=== PATIENT | male | born 1975 | race Two or more races ===

== ENCOUNTER 2024-12-16 21:10 | Inpatient (IN) | payer MEDICAID, OTHER ==
[~2024-12-16] VITALS: Ht 175.3 cm; Wt 92.3 kg
[2024-12-16] MEDS: SODIUM CHLORIDE 0.9% 1,000 ML IV ONE ×2 (21:45→23:36)
[2024-12-16] MEDS: ONDANSETRON HCL 4 MG/2 ML VIAL IV ONE (21:45)
--- NOTE | 2024-12-16 21:48 | ED.PDOC ---
History of Present Illness HPI Comments 49-year-old male presents for multiple chief complaints, including chest pain, shortness of breath, lightheadedness, dizziness, back spasms, nausea, and vomiting. Patient endorses on 2 week history of symptoms, which have progressively worse over the past 3 days. Initial onset was reported to have been gradual, unprovoked, and atraumatic in nature. Only significant history of diabetes and PUD. Patient reports being noncompliant with his medications in addition to not checking his blood sugar levels, regularly. REVIEW OF SYSTEMS: General: No fever, no chills, or fatigue HEENT: No sore throat, no earache, no congestion, no neck pain. Cardiac: chest pain. Lightheadedness. No palpitations. Lungs: shortness of breath, no cough. GI: Nausea and vomiting, no diarrhea, no constipation, no abdominal pain : No dysuria, frequency, or urgency. No hematuria. Musculoskeletal: Back spasms. No joint pain , no joint swelling, no extremity edema. Skin: No rash, no itching. Neuro: Dizziness. No headache no weakness PHYSICAL EXAM: General: Awake, alert and oriented. No acute distress. Skin: Skin in warm, dry and intact. Appropriate color for ethnicity. HEENT: The head is normocephalic and atraumatic. Conjunctivae are clear without exudates or hemorrhage. Sclera is non-icteric. EOM are intact. No signs of nystagmus. Eyelids are normal in appearance without swelling or lesions. Oral mucosa is pink and moist Neck: The neck is supple with normal range of motion. No JVD. Cardiac: Heart rate and rhythm are normal. No murmurs, gallops, or rubs are auscultated. Respiratory: No signs of respiratory distress. Lung sounds are clear in all lobes bilaterally without rales, rhonchi, or wheezes. Extremities: Upper and lower extremities are atraumatic in appearance without deformity or edema. Neurological: The patient is awake, alert and oriented to person, place, and time with normal speech. Speech is clear. There is no facial asymmetry. Psychiatric: Appropriate mood and affect. Good judgement and insight. Chief Complaint: Chest Pain Time Seen by MD: 21:36 Reviewed Notes: Nurses Notes, Medications, Allergies Allergies: Coded Allergies: NO KNOWN ALLERGIES (Unverified , 12/16/24) Information Source: Patient Mode of Arrival: Wheelchair Severity: Moderate Timing: Weeks Duration: Since onset Prehospital treatment: None Past Medical History PAST MEDICAL HISTORY: DM, PUD Surgical History: Denies all surgeries Family History Family History: Unknown Social History Smoker: Non-Smoker Alcohol: Denies ETOH Use Drugs: Denies Drug Use Lives In: Home Was a procedure done? Was a procedure done?: No Differential Dx Considerations may include: Differential diagnoses considered include acute ischemic coronary syndrome, aortic dissection, cardiac tamponade, mediastinitis, pulmonary embolus, pneumothorax, tension pneumothorax, esophageal rupture, coronary artery vasospasm, myocarditis, pericarditis, pneumonia, pulmonary edema, esophageal tear, pancreatitis, aortic stenosis, dilated cardiomyopathy, hypertrophic cardiomyopathy, mitral valve prolapse, malignancy, pleuritis, pneumomediastinum, primary pulmonary hypertension, cholecystitis, esophageal spasm, esophagus, ga stritis, GERD, peptic ulcer disease, costochondritis, fibromyalgia, rib fracture, herpes zoster, radicular syndromes, thoracic outlet syndrome, somatization. intracranial hemorrhage, stroke, head injury, seizure, metabolic disturbance, electrolyte imbalance, infection, substance intoxication, psychiatric cause, other systemic illness, other X-Ray, Labs, Meds, VS Vital Signs Date Time Temp Pulse Resp B/P (MAP) Pulse Ox O2 Delivery O2 Flow Rate FiO2 12/17/24 00:02 61 15 98 Room Air* 0 21 12/17/24 00:00 77 14 133/82 (99) 100 12/16/24 23:38 97.9 85 13 152/66 (94) 100 97.9 12/16/24 21:29 97.9 88 18 143/94 100 97.9 12/16/24 21:22 84 Lab Test 12/17/24 00:56 12/17/24 00:23 12/16/24 22:27 12/16/24 21:45 Range/Units Stool Occult Blood Negative Negative Stool Occult Blood Sample #3 Negative Troponin I High Sensitivity 54 54 </=54 ng/L Lipase 28 12-53 U/L Blood Gas Specimen Type Arterial Blood Gas Sample Site Left radial Blood Gas Patient Temperature 37.0 Arterial Blood Date Drawn [id number] Arterial Blood pH 7.507 H 7.350-7.450 Arterial Blood Partial Pressure CO2 28.2 L 35.0-48.0 mmHg Arterial Blood Partial Pressure O2 94.7 83.0-108.0 mmHg Arterial Blood HCO3 21.8 21.0-28.0 mmol/L Arterial Blood Oxygen Saturation 97.2 94.0-98.0 % Arterial Blood Base Excess -1.3 -2.0-3.0 mmol/L Arterial Blood Oxyhemoglobin 94.4 94.0-98.0 % Arterial Blood Carboxyhemoglobin 1.7 H 0.5-1.5 % Arterial Blood Methemoglobin 1.2 0.0-1.5 % Albert Test Yes Blood Gas Total Hemoglobin 5.00 *L 13.5-17.5 g/dL Blood Gas Modality Room air FiO2 % 21.0 Blood Gas Critical Value Read Back Yes Blood Gas Notified Whom mike Joyner Blood Gas Notified Time [id number] Blood Gas Notified By Content Strategy Lead nevaeh pedro Test 12/16/24 21:32 Range/Units White Blood Count 9.6 4.4-10.8 10^3/uL Red Blood Count 2.53 L 4.5-5.90 10^6/uL Hemoglobin 4.4 *L 13.5-17.5 g/dL Hematocrit 15.1 L 41.0-53.0 % Mean Corpuscular Volume 59.8 L 80.0-100.0 fL Mean Corpuscular Hemoglobin 17.4 L 28.0-32.0 pg Mean Corpuscular Hemoglobin Concent 29.1 L 32.0-36.0 g/dL Red Cell Distribution Width 21.4 H 11.8-14.3 % Platelet Count 370 140-450 10^3/uL Mean Platelet Volume 7.0 6.9-10.8 fL Neutrophils (%) (Auto) 69.5 37.0-80.0 % Lymphocytes (%) (Auto) 21.2 10.0-50.0 % Monocytes (%) (Auto) 8.6 0.0-12.0 % Eosinophils (%) (Auto) 0.3 0.0-7.0 % Basophils (%) (Auto) 0.4 0.0-2.0 % Neutrophils # (Auto) 6.6 1.6-8.6 10 ^3/uL Lymphocytes # (Auto) 2.0 0.4-5.4 10 ^3/uL Monocytes # (Auto) 0.8 0-1.3 10 ^3/uL Eosinophils # (Auto) 0 0-0.8 10 ^3/uL Basophils # (Auto) 0 0-0.2 10 ^3/uL Nucleated Red Blood Cells 0.3 % Prothrombin Time 12.8 H 9.3-11.8 sec Prothrombin Time INR 1.23 H 0.9-1.15 Activated Partial Thromboplast Time 25.1 24.5-34.5 SEC Sodium Level 131 L 136-145 mmol/L Potassium Level 3.2 L 3.5-5.1 mmol/L Chloride Level 95 L 98-107 mmol/L Carbon Dioxide Level 24 20-31 mmol/L Anion Gap 12 5-15 Blood Urea Nitrogen 16 9-23 mg/dL Creatinine 0.78 0.700-1.30 mg/dL Glomerular Filtration Rate Calc 110 >90 mL/min BUN/Creatinine Ratio 20.5 H 10.0-20.0 Serum Glucose 91 74-106 mg/dL Calcium Level 9.7 8.7-10.4 mg/dL Magnesium Level 1.6 1.6-2.6 mg/dL Iron Level 11 L 65-175 ug/dL Total Iron Binding Capacity 472 H 250-425 ug/dL Percent Iron Saturation 2.3 L 20-55 % Ferritin 4.8 L 22-322 ng/mL Total Bilirubin 0.5 0.2-1.0 mg/dL Aspartate Amino Transferase (AST) 39 13-40 U/L Alanine Aminotransferase (ALT) 26 7-40 U/L Alkaline Phosphatase 65 46-116 U/L Troponin I High Sensitivity 53 </=54 ng/L Total Protein 8.0 5.7-8.2 g/dL Albumin 4.5 3.2-4.8 g/dL Beta-Hydroxybutyric Acid 1.218 H < 0.4 mmol/L Current Medications Medications (Trade) Dose Ordered Sig/Annette Route Start Time Stop Time Status Last Admin Sodium Chloride 1,000 ml @ 1,000 mls/hr Q1H ONCE IV 12/16/24 21:45 12/16/24 22:44 DC 12/16/24 21:45 Ondansetron HCl (Zofran) 4 mg ONCE ONCE IV 12/16/24 21:45 12/16/24 21:46 DC 12/16/24 21:45 Aspirin 324 mg ONCE ONCE PO 12/16/24 22:00 12/16/24 22:01 DC 12/16/24 22:00 Potassium Chloride (Klor-Con Tablet) 40 meq ONCE ONCE PO 12/16/24 23:15 12/16/24 23:18 DC 12/16/24 23:36 Pantoprazole Sodium (Protonix) 40 mg ONCE ONCE IV 12/16/24 23:15 12/16/24 23:18 DC 12/16/24 23:36 Sodium Chloride 1,000 ml @ 75 mls/hr [id number] ONCE IV 12/16/24 23:15 12/17/24 12:34 12/16/24 23:36 Octreotide Acetate 100 mcg/ Sodium Chloride 51 ml @ 204 mls/hr ONCE ONCE IV 12/17/24 01:00 12/17/24 01:24 DC 12/17/24 02:56 Octreotide Acetate 500 mcg/ Sodium Chloride 100 ml @ 10 mls/hr Q10H IV 12/17/24 01:00 12/17/24 01:00 Pantoprazole Sodium (Protonix) 40 mg BID IV 12/17/24 01:00 12/17/24 01:47 Acetaminophen/ Hydrocodone Bitart ([place] 5/325MG Tab) 1 tab ONCE ONCE PO 12/17/24 01:00 12/17/24 01:24 DC 12/17/24 01:43 [place] [address] Ph: [phone] DIAGNOSTIC IMAGING Diagnostic Imaging Report : [id number] Signed PATIENT: TING CAMPBELL ACCT: [id number] UNIT: [id number] : 1975 LOC: OVERFLOW ROOM / BED: [address] [place] [address] AGE / SEX: 49 / M ADM STATUS: ADM IN SERVICE 0100 ORDERING PHYSICIAN: VICKIE COOPER RESIDENT PROCEDURE(s): LIVUS - LIVER REASON: r/o cirrhosis ORDER NUMBER(s): [id number], ACCESSION NUMBER(s): [id number] STUDY: US LIVER TECHNIQUE: RUQ ultrasound was obtained using standard technique with Doppler. INDICATIONS: r/o cirrhosis FINDINGS: PANCREAS: Normal in size and echogenicity. Tail of pancreas is not well seen. LIVER: Normal size and echotexture. No mass. GALLBLADDER: No gallstones. Negative levine sign. no gallbladder wall thickening or pericholecystic fluid. COMMON BILE DUCT: Normal in caliber. RIGHT KIDNEY: Normal in size and echogenicity. No mass. No urinary stones. No hydronephrosis. IMPRESSION: 1. Difficult exam due to body habitus. 2. No acute cholecystitis. ATED BY: MARILYN JENSEN MD DICTATED DATE/TIME: 12/17/24206 SIGNED BY: MARILYN JENSEN MD SIGNED DATE/TIME: 12/17/24206 CC: [place] [address] Ph: [phone] DIAGNOSTIC IMAGING Diagnostic Imaging Report : [id number] Signed PATIENT: TING CAMPBELL ACCT: [id number] UNIT: [id number] : 1975 LOC: ER ROOM / BED: / AGE / SEX: 49 / M ADM STATUS: REG ER SERVICE 52 ORDERING PHYSICIAN: CHAO DERAS MD PROCEDURE(s): CXR1 - CHEST XRAY 1 VIEW REASON: Chest pain ORDER NUMBER(s): [id number], ACCESSION NUMBER(s): [id number] CHEST RADIOGRAPH Indication: Chest pain Technique: Single frontal view of the chest was obtained Comparison: None FINDINGS: Lines and Tubes: None Lungs: No focal consolidation. Pleura: No effusion. No pneumothorax. Cardiomediastinal contours: Unremarkable Bones: No acute osseous abnormality. IMPRESSION: 1. No acute cardiopulmonary disease. ATED BY: WARREN YO Jr., DO DICTATED DATE/TIME: 12/16/242243 SIGNED BY: WARREN YO Jr., DO SIGNED DATE/TIME: 12/16/242243 CC: Time of 1ST Reevaluation: 00:06 Reevaluation 1ST: Unchanged Patient Education/Counseling: Other (Need for admission) Family Education/Counseling: No Family Present SEPSIS Sepsis Screen Date sepsis recognized/suspect: Dec 16, 2024 Time Sepsis recognized/suspect: 2119 Recent Procedure: No On Antibiotic Therapy: No Respiratory Rate >20: No Heart Rate >90: No Temp<36 C (96.8 F) or >38.3 C: No SBP <90 or MAP <65 mmHG: No New Acute Mental Status Change: No Is the patient on CPAP, BIPAP,: No Physician Orders Abg W/ Co-Ox (12/16/24 21:36) Saline Lock (12/16/24 21:36) Urinalysis (12/16/24 21:36) Electrocardigram (12/16/24 22:41) Electrocardigram (12/17/24 00:41) Chest Xray 1 View (12/16/24 21:53) Pulse Ox Cont Per Day (12/16/24 22:48) Vital Signs .PER UNIT PROTOCOL (12/16/24 22:48) Administer Blood Products UD (12/16/24 22:48) Stool Occult Blood (12/16/24 23:13) Sodium Chloride 0.9% (12/16/24 23:15) Sodium Chl 0.9% (So... W/Octreotide Acet (12/17/24 01:00) Comprehensive Metabolic Panel (12/17/24 04:00) Complete Blood Count (12/17/24 04:00) LIVER (12/17/24 01:00) Pantoprazole (Protonix) (12/17/24 01:00) Vital Signs Date Time Temp Pulse Resp B/P (MAP) Pulse Ox O2 Delivery O2 Flow Rate FiO2 12/17/24 00:02 61 15 98 Room Air* 0 21 12/17/24 00:00 77 14 133/82 (99) 100 12/16/24 23:38 97.9 85 13 152/66 (94) 100 97.9 12/16/24 21:29 97.9 88 18 143/94 100 97.9 12/16/24 21:22 84 Laboratory Tests Test 12/16/24 21:32 White Blood Count 9.6 10^3/uL (4.4-10.8) Medications Medications Dose Ordered Sig/Annette Route Start Time Stop Time Status Last Admin Dose Admin Acetaminophen/ Hydrocodone Bitart 1 tab ONCE ONCE PO 12/17/24 01:00 12/17/24 01:24 DC 12/17/24 01:43 Aspirin 324 mg ONCE ONCE PO 12/16/24 22:00 12/16/24 22:01 DC 12/16/24 22:00 Octreotide Acetate 100 mcg/ Sodium Chloride 51 ml @ 204 mls/hr ONCE ONCE IV 12/17/24 01:00 12/17/24 01:24 DC 12/17/24 02:56 Octreotide Acetate 500 mcg/ Sodium Chloride 100 ml @ 10 mls/hr Q10H IV 12/17/24 01:00 12/17/24 01:00 Ondansetron HCl 4 mg ONCE ONCE IV 12/16/24 21:45 12/16/24 21:46 DC 12/16/24 21:45 Pantoprazole Sodium 40 mg BID IV 12/17/24 01:00 12/17/24 01:47 Pantoprazole Sodium 40 mg ONCE ONCE IV 12/16/24 23:15 12/16/24 23:18 DC 12/16/24 23:36 Potassium Chloride 40 meq ONCE ONCE PO 12/16/24 23:15 12/16/24 23:18 DC 12/16/24 23:36 Sodium Chloride 1,000 ml @ 75 mls/hr [id number] ONCE IV 12/16/24 23:15 12/17/24 12:34 12/16/24 23:36 Sodium Chloride 1,000 ml @ 1,000 mls/hr Q1H ONCE IV 12/16/24 21:45 12/16/24 22:44 DC 12/16/24 21:45 Departure 1 Departure Time of Disposition: 23:34 Impression: Primary Impression: Severe anemia Additional Impressions: Hyponatremia Hypokalemia Disposition: ADMITTED INPATIENT Condition: Serious Comments MDM: [age] year old male with a history of diabetes, peptic ulcer disease presents to the emergency department with chest pain. Initial evaluation included thorough history, physical examination and appropriate diagnostic testing. Based on the clinical presentation and diagnostic findings, the patient appears to have severe anemia, hyponatremia, hypokalemia. Blood transfusion initiated in the ED, as well as potassium replacement and IV fluids. Given the complexity of the case and need for further management patient is being admitted to the hospitalist service for further monitoring, treatment and evaluation. Risks, benefits and alternatives of admission and proposed interventions were discussed with the patient. Patient is in agreement with the plan. Extensive evaluation was performed in attempt to identify or rule out: (See differential diagnosis section) The following tests were ordered, and results were reviewed by me and discussed with patient: (See diagnostic results section) The following test were independently interpreted by me: EKG I reviewed and agreed with the following test results read by other providers: Chest x-ray I reviewed the following notes from the pt's past medical encounters: N/A Additional information was gathered from interviewing the following independent historians: N/A Discussion of management or test interpretation with external physician/other qualified health memory care program resident: N/A Addressed an acute or chronic illness that poses a threat to life or bodily function: Severe anemia requiring blood transfusion Decision regarding hospitalization or escalation of hospital level of care: Risk and benefits of admission for further treatment of patient's condition was considered. Due to patient's current clinical condition, high risk of decline and poor outcome if discharged and need for further inpatient management and monitoring, patient will be admitted to the hospital. Drug therapy requiring intensive monitoring for toxicity: Packed red blood cell transfusion Parenteral controlled substances: N/A Decision regarding elective major surgery with identified patient or procedure risk factors: N/A Decision regarding emergency major surgery: N/A Decision not to resuscitate or to de-escalate care because of poor prognosis: N/A Diagnosis or treatment significantly limited by social determinants of health: N/A Critical Care Note Critical Care Time?: No Stability Stability form required: No Heart Score Heart Score: Heart Score Response (Comments) Value History N/A 0 EKG N/A 0 Age N/A 0 Risk Factors N/A 0 Troponin N/A 0 Total 0 I personally scribed for CHAO DERAS MD ([email or web address]) on 12/16/24 at 21:48. Electronically submitted by Beto Gutiérrez ([email or web address]). I personally scribed for CHAO DERAS MD ([email or web address]) on 12/17/24 at 03:02. Electronically submitted by Beto Gutiérrez ([email or web address]). CHAO DERAS MD Dec 16, 2024 21:48
[2024-12-16 21:53] LABS: Base Excess -1.3 mmol/L (-2.0-3.0)
[2024-12-16 22:16] LABS: Alanine Aminotransferase 26 U/L (7-40); Albumin 4.5 g/dL (3.2-4.8); Alkaline Phosphatase 65 U/L (46-116); Anion Gap 12 (5-15); BUN/Creatinine Ratio 20.5 (10.0-20.0); Bilirubin, Total 0.5 mg/dL (0.2-1.0); Blood Urea Nitrogen 16 mg/dL (9-23); Calcium 9.7 mg/dL (8.7-10.4); Carbon Dioxide 24 mmol/L (20-31); Glucose 91 mg/dL (74-106); Nucleated Red Blood Cells % 0.3 %; Total Protein 8.0 g/dL (5.7-8.2)
[2024-12-16 22:18] LABS: Hematocrit 15.1 % (41.0-53.0); Mean Corpuscular Hemoglobin 17.4 pg (28.0-32.0); Mean Corpuscular Volume 59.8 fL (80.0-100.0)
[2024-12-16 22:19] LABS: Chloride 95 mmol/L (98-107); Magnesium 1.6 mg/dL (1.6-2.6); Potassium 3.2 mmol/L (3.5-5.1); Sodium 131 mmol/L (136-145)
[2024-12-16 22:27] LABS: Hemoglobin 4.4 g/dL (13.5-17.5)
--- NOTE | 2024-12-16 22:47 | DVH ---
CHEST RADIOGRAPH Indication: Chest pain Technique: Single frontal view of the chest was obtained Comparison: None FINDINGS: Lines and Tubes: None Lungs: No focal consolidation. Pleura: No effusion. No pneumothorax. Cardiomediastinal contours: Unremarkable Bones: No acute osseous abnormality. IMPRESSION: 1. No acute cardiopulmonary disease.
[2024-12-16] MEDS: PANTOPRAZOLE 40 MG/10 ML VIAL INJ IV ONE (23:36)
[2024-12-16] MEDS: POTASSIUM CHL 20 Meq TABLET PO ONE (23:36)
[2024-12-17] VITALS (16 sets, daily range): BP systolic 104–164; BP diastolic 59–100; PULSE 56–87; RESP 11–18; TEMP 97.2–98.9; O2SAT 98–100
--- NOTE | 2024-12-17 00:17 | ECG ---
[facility] Test Date: 2024-12-16 Test Time: 21:22:02 Pat Name: TING CAMPBELL Department: ED Room: [address] [place] [address] Gender: M [employer]: COMPA : 1975 Requested By: EMERGENCY EMERGENCY Order Number: [id number] Reading MD: Gokul Nuno Measurements Intervals [place] Rate: 84 P: 19 IA: 144 QRS: -1 QRSD: 89 T: 7 QT: 399 QTc: 472 Interpretive Statements Sinus rhythm Electronically Signed On 12-17-2024 18:24:53 PDT by Gokul Nuno Please click the below link to view image of tracing.
[2024-12-17] MEDS: OCTREOTIDE ACETATE 500 MCG in SODIUM CHL 0.9% 99 ML IV SCH (01:00)
[2024-12-17] MEDS ORDERED: ONDANSETRON HCL 4 MG/2 ML VIAL IV PRN (01:30)
[2024-12-17 01:37] LABS: Iron 11.0 ug/dL (65-175)
[2024-12-17 01:39] LABS: Total Iron Binding Capacity 472.0 ug/dL (250-425)
[2024-12-17] MEDS: HYDROcodone-ACET 5/325MG TAB PO ONE (01:43)
[2024-12-17] MEDS: PANTOPRAZOLE 40 MG/10 ML VIAL INJ IV SCH (01:47)
[2024-12-17] MEDS: OCTREOTIDE ACETATE 500 MCG/ML VL ONE (01:51)
[2024-12-17 02:03] LABS: INR 1.23 (0.9-1.15); Partial Thromboplastin Time 25.1 SEC (24.5-34.5); Prothrombin Time 12.8 sec (9.3-11.8)
--- NOTE | 2024-12-17 02:10 | DVH ---
STUDY: US LIVER TECHNIQUE: RUQ ultrasound was obtained using standard technique with Doppler. INDICATIONS: r/o cirrhosis FINDINGS: PANCREAS: Normal in size and echogenicity. Tail of pancreas is not well seen. LIVER: Normal size and echotexture. No mass. GALLBLADDER: No gallstones. Negative levine sign. no gallbladder wall thickening or pericholecystic f luid. COMMON BILE DUCT: Normal in caliber. RIGHT KIDNEY: Normal in size and echogenicity. No mass. No urinary stones. No hydronephrosis. IMPRESSION: 1. Difficult exam due to body habitus. 2. No acute cholecystitis.
[2024-12-17] MEDS: OCTREOTIDE ACETATE 100 MCG in SODIUM CHL 0.9% 50 ML IV ONE (02:56)
[2024-12-17] MEDS: OCTREOTIDE ACETATE 100 MCG/ML VL ONE (02:57)
--- NOTE | 2024-12-17 06:07 | DVHHPRES ---
History of Present Illness Resident Creating Document: VICKIE COOPER RESIDENT History of Present Illness Lalo Dubon is a 49-year-old male, with past medical history of DM2, GERD and peptic ulcer disease. The patient presented to the ED with chief complain of 3 days of chest pain /, stabbing-like, retrosternal, intermittent, progressive, irradiated to the back associated with lightheadedness, dizziness, shortness of breath, nausea, and vomiting. The patient reports po intolerance, vomit with every meal for the last 2 months and chronic alcohol drinking 6-8 cans of beer daily. Today, the patient start experiencing epigastric abdominal pain / that irradiated to the chest, burning like pain and nausea, this prompted his visit to the ED. The patient denies hematochezia, hematemesis, hemorrhoids, changes in bowel movements habits, hematuria, fever, chills or other symptoms. Initial evaluation in the ED showed: Hb: 4.4mg/dl, ABGs; PCO2 28.2 pH:7.50 Blood Gas Total Hemoglobin: 5, HCO3 21.8, Potassium 3.2 meq/l, Troponins; 53, 54. Type and screen were ordered, 2 RBC units will be transfused. GI consult was requested. Patient will be admitted for further evaluation and management. GI: GERD, GI bleed (GI bleeding that needed RBC Unit transfusion 3-4 years ago. ), Peptic Ulcer disease Heme/Onc: Iron deficiency Anemia Hepatobiliary: Cirrhosis Endocrine: Diabetes (D\M2, Patient stopped treatment by himself. ) Past Surgical History: Hernia Repair (Right 10 years ago.), Other (L ankle fracture.) Family History: DM, Hypertension Smoke: No ALCOHOL: heavy (6-8 cans per day for more than 10 years. ) Drugs: None Lives: with Family Review of Systems Constitutional: Yes: Weakness, Malaise; No: Fever, Chills, Sweats, Other Eyes: No: Pain, Vision change, Conjunctivae inflammation, Eyelid inflammation, Other, Redness ENT: No: Ear pain, Ear discharge, Nose pain, Nose discharge, Nose congestion, Mouth pain, Mouth swelling, Throat pain, Throat swelling, Other Respiratory: SOB with excertion; No: Cough, Dry, Shortness of breath, Wheezing, Hemoptysis, Pleuritic Pain, Sputum, Wheezing, Other Cardiovascular: Chest Pain, Lt Headedness; No: Palpitations, Orthopnea, Paroxy smal Noc. Dyspnea, Edema, Other Gastrointestinal: Nausea, Vomiting, Abdominal Pain; No: Diarrhea, Constipation, Melena, Hematochezia, Other Genitourinary: No Dysuria, No Frequency, No Incontinence, No Hematuria, No Retention, No Other Musculoskeletal: No: other, neck pain, shoulder pain, arm pain, back pain, hand pain, leg pain, foot pain Skin: No: Rash, Lesions, Jaundice, Bruising, Other Neurological: Weakness; No: Numbness, Incoordination, Change in speech, Confusion, Seizures, Other Allergies: Coded Allergies: NO KNOWN ALLERGIES (Unverified , 12/16/24) Medications Current Medications Medications Dose Ordered Sig/Annette Route Start Time Stop Time Status Last Admin Dose Admin Octreotide Acetate 500 mcg/ Sodium Chloride 100 ml @ 10 mls/hr Q10H IV 12/17/24 01:00 12/17/24 01:00 10 MLS/HR Pantoprazole Sodium 40 mg BID IV 12/17/24 01:00 12/17/24 01:47 40 MG Ondansetron HCl 4 mg Q4HP PRN IV 12/17/24 01:30 Exam Vital Signs Vital Signs Date Time Temp Pulse Resp B/P (MAP) Pulse Ox O2 Delivery O2 Flow Rate FiO2 12/17/24 05:00 98.5 79 16 104/64 98.5 12/17/24 04:00 98 12/17/24 00:02 Room Air* 0 21 General Appearance: Alert, Oriented X3, Cooperative, mild distress HEENT: Atraumatic, Mucous membr. moist/pink, Other (Jaundice in face. ) Respiratory: Clear to auscultation, Normal air movement Cardiovascular: Regular rate, Normal S1, Normal S2, No murmurs Abdominal: Normal bowel sounds, Soft, No masses, Other (Soft, depressible, Tendernes in uper right quadrant and epigastric area, cannot palpate the liver edge. ) Extremities: No clubbing, No cyanosis, No edema, Normal pulses, No tenderness/swelling Skin: No rashes, No breakdown, No significant lesion Neuro: Normal gait, Normal speech, Strength at 5/5 X4 ext, Normal tone, Sensation intact Psych/Mental Status: Mental status NL, Mood NL Labs/Xrays Labs Test 12/17/24 00:56 12/17/24 00:23 12/16/24 21:45 12/16/24 21:32 Range/Units Stool Occult Blood Negative Negative Stool Occult Blood Sample #3 Negative Troponin I High Sensitivity 54 </=54 ng/L Lipase 28 12-53 U/L Blood Gas Specimen Type Arterial Blood Gas Sample Site Left radial Blood Gas Patient Temperature 37.0 Arterial Blood Date Drawn [id number] Arterial Blood pH 7.507 H 7.350-7.450 Arterial Blood Partial Pressure CO2 28.2 L 35.0-48.0 mmHg Arterial Blood Partial Pressure O2 94.7 83.0-108.0 mmHg Arterial Blood HCO3 21.8 21.0-28.0 mmol/L Arterial Blood Oxygen Saturation 97.2 94.0-98.0 % Arterial Blood Base Excess -1.3 -2.0-3.0 mmol/L Arterial Blood Oxyhemoglobin 94.4 94.0-98.0 % Arterial Blood Carboxyhemoglobin 1.7 H 0.5-1.5 % Arterial Blood Methemoglobin 1.2 0.0-1.5 % Albert Test Yes Blood Gas Total Hemoglobin 5.00 *L 13.5-17.5 g/dL Blood Gas Modality Room air FiO2 % 21.0 Blood Gas Critical Value Read Back Yes Blood Gas Notified Whom mike Joyner Blood Gas Notified Time [id number] Blood Gas Notified By Head Screen Worker nevaeh pedro White Blood Count 9.6 4.4-10.8 10^3/uL Red Blood Count 2.53 L 4.5-5.90 10^6/uL Hemoglobin 4.4 *L 13.5-17.5 g/dL Hematocrit 15.1 L 41.0-53.0 % Mean Corpuscular Volume 59.8 L 80.0-100.0 fL Mean Corpuscular Hemoglobin 17.4 L 28.0-32.0 pg Mean Corpuscular Hemoglobin Concent 29.1 L 32.0-36.0 g/dL Red Cell Distribution Width 21.4 H 11.8-14.3 % Platelet Count 370 140-450 10^3/uL Mean Platelet Volume 7.0 6.9-10.8 fL Neutrophils (%) (Auto) 69.5 37.0-80.0 % Lymphocytes (%) (Auto) 21.2 10.0-50.0 % Monocytes (%) (Auto) 8.6 0.0-12.0 % Eosinophils (%) (Auto) 0.3 0.0-7.0 % Basophils (%) (Auto) 0.4 0.0-2.0 % Neutrophils # (Auto) 6.6 1.6-8.6 10 ^3/uL Lymphocytes # (Auto) 2.0 0.4-5.4 10 ^3/uL Monocytes # (Auto) 0.8 0-1.3 10 ^3/uL Eosinophils # (Auto) 0 0-0.8 10 ^3/uL Basophils # (Auto) 0 0-0.2 10 ^3/uL Nucleated Red Blood Cells 0.3 % Prothrombin Time 12.8 H 9.3-11.8 sec Prothrombin Time INR 1.23 H 0.9-1.15 Activated Partial Thromboplast Time 25.1 24.5-34.5 SEC Sodium Level 131 L 136-145 mmol/L Potassium Level 3.2 L 3.5-5.1 mmol/L Chloride Level 95 L 98-107 mmol/L Carbon Dioxide Level 24 20-31 mmol/L Anion Gap 12 5-15 Blood Urea Nitrogen 16 9-23 mg/dL Creatinine 0.78 0.700-1.30 mg/dL Glomerular Filtration Rate Calc 110 >90 mL/min BUN/Creatinine Ratio 20.5 H 10.0-20.0 Serum Glucose 91 74-106 mg/dL Calcium Level 9.7 8.7-10.4 mg/dL Magnesium Level 1.6 1.6-2.6 mg/dL Iron Level 11 L 65-175 ug/dL Total Iron Binding Capacity 472 H 250-425 ug/dL Percent Iron Saturation 2.3 L 20-55 % Ferritin 4.8 L 22-322 ng/mL Total Bilirubin 0.5 0.2-1.0 mg/dL Aspartate Amino Transferase (AST) 39 13-40 U/L Alanine Aminotransferase (ALT) 26 7-40 U/L Alkaline Phosphatase 65 46-116 U/L Total Protein 8.0 5.7-8.2 g/dL Albumin 4.5 3.2-4.8 g/dL Beta-Hydroxybutyric Acid 1.218 H < 0.4 mmol/L SEPSIS Sepsis Screen Date sepsis recognized/suspect: Dec 16, 2024 Time Sepsis recognized/suspect: 2119 Recent Procedure: No On Antibiotic Therapy: No Respiratory Rate >20: No Heart Rate >90: No Temp<36 C (96.8 F) or >38.3 C: No SBP <90 or MAP <65 mmHG: No New Acute Mental Status Change: No Is the patient on CPAP, BIPAP,: No Physician Orders Abg W/ Co-Ox (12/16/24 21:36) Saline Lock (12/16/24 21:36) Urinalysis (12/16/24 21:36) Electrocardigram (12/16/24 22:41) Electrocardigram (12/17/24 00:41) Chest Xray 1 View (12/16/24 21:53) Pulse Ox Cont Per Day (12/16/24 22:48) Vital Signs .PER UNIT PROTOCOL (12/16/24 22:48) Administer Blood Products UD (12/16/24 22:48) Stool Occult Blood (12/16/24 23:13) Sodium Chloride 0.9% (12/16/24 23:15) Sodium Chl 0.9% (So... 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 (12/17/24 01:21) * 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 (12/17/24 01:21) Npo (Nothing By Mouth) Diet (12/17/24 Breakfast) Vital Signs Date Time Temp Pulse Resp B/P (MAP) Pulse Ox O2 Delivery O2 Flow Rate FiO2 12/17/24 05:00 98.5 79 16 104/64 98.5 12/17/24 04:41 98.4 82 16 125/65 98.4 12/17/24 04:20 98.6 78 15 114/59 98.6 12/17/24 04:00 79 15 119/69 (86) 98 12/17/24 02:20 98.3 87 13 111/64 98.3 12/17/24 02:00 68 14 121/60 (80) 100 12/17/24 01:55 98.3 69 16 122/73 98.3 12/17/24 00:02 61 15 98 Room Air* 0 21 12/17/24 00:00 77 14 133/82 (99) 100 12/16/24 23:38 97.9 85 13 152/66 (94) 100 97.9 Laboratory Tests Test 12/16/24 21:32 White Blood Count 9.6 10^3/uL (4.4-10.8) Medications Medications Dose Ordered Sig/Annette Route Start Time Stop Time Status Last Admin Dose Admin Acetaminophen/ Hydrocodone Bitart 1 tab ONCE ONCE PO 12/17/24 01:00 12/17/24 01:24 DC 12/17/24 01:43 1 TAB Aspirin 324 mg ONCE ONCE PO 12/16/24 22:00 12/16/24 22:01 DC 12/16/24 22:00 324 MG Octreotide Acetate 100 mcg/ Sodium Chloride 51 ml @ 204 mls/hr ONCE ONCE IV 12/17/24 01:00 12/17/24 01:24 DC 12/17/24 02:56 204 MLS/HR Octreotide Acetate 500 mcg/ Sodium Chloride 100 ml @ 10 mls/hr Q10H IV 12/17/24 01:00 12/17/24 01:00 10 MLS/HR Ondansetron HCl 4 mg ONCE ONCE IV 12/16/24 21:45 12/16/24 21:46 DC 12/16/24 21:45 4 MG Pantoprazole Sodium 40 mg BID IV 12/17/24 01:00 12/17/24 01:47 40 MG Pantoprazole Sodium 40 mg ONCE ONCE IV 12/16/24 23:15 12/16/24 23:18 DC 12/16/24 23:36 40 MG Potassium Chloride 40 meq ONCE ONCE PO 12/16/24 23:15 12/16/24 23:18 DC 12/16/24 23:36 40 MEQ Sodium Chloride 1,000 ml @ 75 mls/hr [id number] ONCE IV 12/16/24 23:15 12/17/24 12:34 12/16/24 23:36 75 MLS/HR Sodium Chloride 1,000 ml @ 1,000 mls/hr Q1H ONCE IV 12/16/24 21:45 12/16/24 22:44 DC 12/16/24 21:45 1,000 MLS/HR Assessment/Plan Assessment/Plan #Severe Anemia #R/O active GI bleeding #R/O cirrhosis #Ulcer peptic disease Hb: 4.4mg/dl Type and screen 2 RBC units H&H FOBT GI consult #Chest Pain, R/O ACS EKG Troponins BNP #Intractable abdominal pain #PO intolerance IV fluids: NS Zofran 4mg po Hydrocodone 10/325mg IV Abdomen US #Respiratory alkalosis pH 7.5 CO28.2 #DM2 HbA1C #Alcohol dependence Alcohol abuse counselling. NPO diet DVT prophylaxis-passive compressive device. PUD prophylaxis Protonic. Goals of care discussed with the patient > 35 min. Discussed plan of care with Dr. Leiva Code status: Full code PCP: No established Plan discussed with: Patient, the patient agrees with the admission plan. Plan discussed with: Patient, Other (Sister) My Orders Orders - VICKIE COOPER RESIDENT Procedure Category Date Status Time Sodium Chl 0.9% PHA 12/17/24 In Process (So... W/Octreotide 01:00 Comprehensive LAB 12/17/24 Logged Metabolic Panel 04:00 Complete Blood Count LAB 12/17/24 Logged 04:00 LIVER US 12/17/24 Resulted 01:00 Pantoprazole PHA 12/17/24 In Process (Protonix) 01:00 Admit ADMIT 12/17/24 Transmitted 01:21 Code Status CODE 12/17/24 Transmitted 01:21 Review Orders With ROSANA 12/17/24 In Process Adm. 01:21 Bedside Commode [facility] 12/17/24 In Process 01:21 Notify Md Of Changes [facility] 12/17/24 In Process From Base 01:21 Advance Directive [facility] 12/17/24 In Process 01:21 Patient Condition ORDERS 12/17/24 Transmitted 01:21 Allergies [facility] 12/17/24 In Process 01:21 Ondansetron Hcl PHA 12/17/24 In Process (Zofran) 01:30 Drug Screen LAB 12/17/24 Logged 01:21 Notify Md Of Changes [facility] 12/17/24 In Process From Base 01:21 Stat Ekg For Chest [facility] 12/17/24 In Process Pain 01:21 Lamp Assembler For [facility] 12/17/24 In Process 24 Hours 01:21 * 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 Framer CONS 12/17/24 Transmitted 01:21 Npo (Nothing By DIET 12/17/24 Transmitted Mouth) Diet Breakfast Date of Service: Dec 17, 2024 Billing Provider: KIMBERLEY LEIVA MD Common Visit Codes: [id number] INP/OBS CARE (HIGH) Secondary Visit Codes: [id number] CARE PLAN 30 MINUTES VICKIE COOPER RESIDENT Dec 17, 2024 06:06
[2024-12-17] MEDS: HYDROcodone-ACET 10/325MG TAB PO PRN (06:31)
[2024-12-17 07:06] LABS: Alanine Aminotransferase 23 U/L (7-40); Albumin 3.7 g/dL (3.2-4.8); Alkaline Phosphatase 56 U/L (46-116); Anion Gap 12 (5-15); BUN/Creatinine Ratio 18.8 (10.0-20.0); Blood Urea Nitrogen 13 mg/dL (9-23); Calcium 8.7 mg/dL (8.7-10.4); Chloride 102 mmol/L (98-107); Glucose 98 mg/dL (74-106); Potassium 4.4 mmol/L (3.5-5.1); Total Protein 6.7 g/dL (5.7-8.2)
[2024-12-17 07:07] LABS: Bilirubin, Total 1.1 mg/dL (0.2-1.0)
[2024-12-17 07:09] LABS: Carbon Dioxide 19 mmol/L (20-31); Sodium 133 mmol/L (136-145)
[2024-12-17 08:06] LABS: Hematocrit 20.8 % (41.0-53.0); Mean Corpuscular Hemoglobin 21.5 pg (28.0-32.0); Mean Corpuscular Volume 68.5 fL (80.0-100.0); Nucleated Red Blood Cells % 0.4 %
[2024-12-17 08:11] LABS: Hemoglobin 6.5 g/dL (13.5-17.5)
[2024-12-17 08:35] LABS: Anisocytosis Slight
[2024-12-17] MEDS ORDERED: POTASSIUM CHL 20MEQ/100ML 100 ML IV SCH (09:15)
--- NOTE | 2024-12-17 11:22 | DVHINCON2 ---
GI Consult Consult Note GI consult note Date of Consultation: 12/17/2024 Chief Complaint: Possible upper GI bleed Referring Physician: Ricky IRWIN H&P: 49-year-old male with past medical history of DM, GERD and PUD is being seen in ER with complains of epigastric abdominal pain that is sharp in nature and burning sensation radiating into his chest and back. Patient also complains of nausea and vomiting, mostly throwing up food. Denies hematemesis. No melena or red blood in stool. Patient admits like he feels like food is stuck in his lower esophagus. Similar symptoms four years ago where patient needed blood transfusion. Status post EGD four years ago unsure about results. Patient admits to heavy alcohol use about 6-8 cans of beers every day. Denies blood thinners Past Medical History: GERD, GI bleed (GI bleeding that needed RBC Unit transfusion 3-4 years ago. ), Peptic Ulcer disease Iron-deficiency anemia, cirrhosis, DM Past Surgical History: Hernia repair, left ankle fracture repair Social History: NO smoking, heavy drinking ETOH Family History: Noncontributory Review of Systems: Constitutional: no fever, chill, weight loss HEENT: no eye pain, no hearing loss, no oral lesion, no scleral icterus Heart: no chest pain, no chest pressure Lung: no cough, no dyspnea with exertion Abdomen: see HPI Physical exam: General: NAD, AAOX3 Chest: lung wade clear to auscultation Heart: RRR, no murmur Abdomen: non-distended, mild epigastric tenderness to palpation, +BS Labs: Labs Test 12/17/24 07:43 12/17/24 06:26 12/17/24 00:56 12/17/24 00:23 Range/Units White Blood Count 9.0 4.4-10.8 10^3/uL Red Blood Count 3.03 L 4.5-5.90 10^6/uL Hemoglobin 6.5 #*L 13.5-17.5 g/dL Hematocrit 20.8 #L 41.0-53.0 % Mean Corpuscular Volume 68.5 #L 80.0-100.0 fL Mean Corpuscular Hemoglobin 21.5 L 28.0-32.0 pg Mean Corpuscular Hemoglobin Concent 31.4 L 32.0-36.0 g/dL Red Cell Distribution Width 30.0 H 11.8-14.3 % Platelet Count 332 140-450 10^3/uL Mean Platelet Volume 8.1 6.9-10.8 fL Neutrophils (%) (Auto) 66.0 37.0-80.0 % Lymphocytes (%) (Auto) 21.3 10.0-50.0 % Monocytes (%) (Auto) 11.0 0.0-12.0 % Eosinophils (%) (Auto) 0.9 0.0-7.0 % Basophils (%) (Auto) 0.8 0.0-2.0 % Neutrophils # (Auto) 5.9 1.6-8.6 10 ^3/uL Lymphocytes # (Auto) 1.9 0.4-5.4 10 ^3/uL Monocytes # (Auto) 1.0 0-1.3 10 ^3/uL Eosinophils # (Auto) 0.1 0-0.8 10 ^3/uL Basophils # (Auto) 0.1 0-0.2 10 ^3/uL Nucleated Red Blood Cells 0.4 % Platelet Estimate Adequate Hypochromasia (manual) Moderate Anisocytosis (manual) Slight Microcytosis Moderate Sodium Level 133 L 136-145 mmol/L Potassium Level 4.4 3.5-5.1 mmol/L Chloride Level 102 98-107 mmol/L Carbon Dioxide Level 19 L 20-31 mmol/L Anion Gap 12 5-15 Blood Urea Nitrogen 13 9-23 mg/dL Creatinine 0.69 L 0.700-1.30 mg/dL Glomerular Filtration Rate Calc 114 >90 mL/min BUN/Creatinine Ratio 18.8 10.0-20.0 Serum Glucose 98 74-106 mg/dL Calcium Level 8.7 8.7-10.4 mg/dL Magnesium Level 1.5 L 1.6-2.6 mg/dL Total Bilirubin 1.1 H 0.2-1.0 mg/dL Aspartate Amino Transferase (AST) 39 13-40 U/L Alanine Aminotransferase (ALT) 23 7-40 U/L Alkaline Phosphatase 56 46-116 U/L Total Protein 6.7 5.7-8.2 g/dL Albumin 3.7 3.2-4.8 g/dL Stool Occult Blood Negative Negative Stool Occult Blood Sample #3 Negative Troponin I High Sensitivity 54 </=54 ng/L Lipase 28 12-53 U/L Test 12/16/24 21:45 12/16/24 21:32 Range/Units Blood Gas Specimen Type Arterial Blood Gas Sample Site Left radial Blood Gas Patient Temperature 37.0 Arterial Blood Date Drawn [id number] Arterial Blood pH 7.507 H 7.350-7.450 Arterial Blood Partial Pressure CO2 28.2 L 35.0-48.0 mmHg Arterial Blood Partial Pressure O2 94.7 83.0-108.0 mmHg Arterial Blood HCO3 21.8 21.0-28.0 mmol/L Arterial Blood Oxygen Saturation 97.2 94.0-98.0 % Arterial Blood Base Excess -1.3 -2.0-3.0 mmol/L Arterial Blood Oxyhemoglobin 94.4 94.0-98.0 % Arterial Blood Carboxyhemoglobin 1.7 H 0.5-1.5 % Arterial Blood Methemoglobin 1.2 0.0-1.5 % Albert Test Yes Blood Gas Total Hemoglobin 5.00 *L 13.5-17.5 g/dL Blood Gas Modality Room air FiO2 % 21.0 Blood Gas Critical Value Read Back Yes Blood Gas Notified Whom mike Joyner Blood Gas Notified Time [id number] Blood Gas Notified By Manager Operations nevaeh pedro Prothrombin Time 12.8 H 9.3-11.8 sec Prothrombin Time INR 1.23 H 0.9-1.15 Activated Partial Thromboplast Time 25.1 24.5-34.5 SEC Iron Level 11 L 65-175 ug/dL Total Iron Binding Capacity 472 H 250-425 ug/dL Percent Iron Saturation 2.3 L 20-55 % Ferritin 4.8 L 22-322 ng/mL Beta-Hydroxybutyric Acid 1.218 H < 0.4 mmol/L Imaging: Abdominal ultrasound IMPRESSION: 1. Difficult exam due to body habitus. 2. No acute cholecystitis. Assessment: Severe anemia Abdominal pain Alcohol dependence History of PUD Plan: Discussed with Dr. Jacobo - Pt will be scheduled for a possible EGD today or tomorrow. Pt was informed of the risks (bleeding, infection, perforation, reaction to sedation medications and cardiopulmonary arrest) and benefit and is agreeable to undergo the procedur es. Stat CBC patient is status post 3 units of PRBC transfused Continue Npo We will follow patient Thank you for this consult Date of Service: Dec 17, 2024 Billing Provider: NBA ALVES Common Visit Codes: CONSULT ONLY Consultation Codes: [id number] CONSULT <60MIN NBA ALVES Dec 17, 2024 11:22
[2024-12-17] MEDS: IRON SUCROSE COMPLEX 110 ML IV SCH (12:32)
--- NOTE | 2024-12-17 12:49 | DVH ---
US ABDOMEN LIMITED HISTORY: ascitis COMPARISON: US LIVER on DOS: 12/17/24 TECHNIQUE: Transverse and longitudinal sonographic images were obtained of all four quadrants of the abdomen and pelvis. FINDINGS: IMPRESSION: No ascites is seen.
[2024-12-17] MEDS ORDERED: MIDAZOLAM HCL 2MG/2ML 2ml VIAL (1mg/ml) ONE (12:53)
[2024-12-17] MEDS: diphenhdrAMINE HCL 50 MG/1 ML VL ONE (13:08)
[2024-12-17] MEDS ORDERED: SODIUM CHLORIDE LOCK 10 ML ONE (13:10)
--- NOTE | 2024-12-17 16:12 | DVHPNRES ---
Progress Note Date Seen: Dec 17, 2024 Resident Creating Document: DIMAS INIGUEZ Medical Necessity Reason Pt with a Central, PICC or Fol: No Subjective Review of Systems This is a 49-year-old male with a history of DM2, GERD, peptic ulcer disease, iron-deficiency anemia, and cirrhosis. He presents to the ED with 3 days of stabbing, retrosternal chest pain (rated 10/7), intermittent and progressive, radiating to the back, associated with lightheadedness, dizziness, shortness of breath, nausea, and vomiting. He reports PO intolerance and vomiting with every meal for the past 3 days. Today, he developed epigastric pain (9/10), burning in nature, radiating to the chest, prompting his ED visit. He denies hematemesis, hematochezia, melena, hematuria, fever, chills, or bowel habit changes. He has a history of GI bleeding requiring transfusion 4 years ago and underwent EGD at that time (results shows GI ulcer). Initial hemoglobin level was 4.4. Past medical history: GERD, GI bleed (GI bleeding that needed RBC Unit transfusion 4 years ago), Peptic Ulcer disease, Iron-deficiency anemia, cirrhosis, DM Past surgical history: Hernia repair, left ankle fracture repair Social & Personal history: He admits to heavy alcohol use (8-10 beers daily for over 27 years). No smoking or drug use. Lives with family. No established PCP. Allergies: Coded Allergies: NO KNOWN ALLERGIES (Unverified , 12/16/24) Patient seen and examined at bedside. Patient is alert and oriented to time, place person and responding to all questions. Eyes: No Pain, No Vision change, No Conjunctivae inflammation, No Eyelid inflammation, No Other, No Redness ENT: No Ear pain, No Ear discharge, No Nose pain, No Nose discharge, No Nose congestion, No Mouth pain, No Mouth swelling, No Throat pain, No Throat swelling, No Other Cardiovascular: No Chest Pain, No Palpitations, No Orthopnea, No Paroxysmal No Dyspnea, No Edema, No Lt Headedness, No Other Respiratory: SOB with excertion. No Cough, No Dry, No Shortness of breath, No Wheezing, No Hemoptysis, No Pleuritic Pain, No Sputum, No Other Gastrointestinal: Nausea, Vomiting, Abdominal Pain, No Diarrhea, No Constipation, No Melena, No Hematochezia, No Other Genitourinary: No Dysuria, No Frequency, No Incontinence, No Hematuria, No Retention, No Other Musculoskeletal: No other, No neck pain, No shoulder pain, No arm pain, No back pain, No hand pain, No leg pain, No foot pain Skin: No Rash, No Lesions, No Jaundice, No Bruising, No Other Neurological: Weakness; No: Numbness, Incoordination, Change in speech, Confusion, Seizures, Other Objective vital signs Vital Sign Date Time Temp Pulse Resp B/P (MAP) Pulse Ox O2 Delivery O2 Flow Rate FiO2 12/17/24 12:30 98.4 64 14 139/76 98.4 12/17/24 12:00 99 12/17/24 08:00 Room Air* 0 21 Total Intake and Output 12/16/24 12/16/24 12/17/24 15:00 23:00 07:00 Intake Total 1000 ml 2589 ml Output Total 0 ml Balance 1000 ml 2589 ml medications Current Medications Medications Dose Ordered Sig/Annette Route Start Time Stop Time Status Last Admin Dose Admin Pantoprazole Sodium 40 mg BID IV 12/17/24 01:00 12/17/24 10:13 40 MG Ondansetron HCl 4 mg Q4HP PRN IV 12/17/24 01:30 Acetaminophen/ Hydrocodone Bitart 1 tab Q4HP PRN PO 12/17/24 05:45 12/17/24 06:31 1 TAB Potassium Chloride 100 ml @ 50 mls/hr Q2H IV 12/17/24 09:15 12/17/24 13:14 UNV Iron Sucrose 110 ml @ 110 mls/hr DAILY@1200 IV 12/17/24 12:00 12/21/24 12:59 12/17/24 12:32 110 MLS/HR Examination General Appearance: Alert, Oriented X3, Cooperative, mild distress HEENT: Atraumatic, Mucous membr. moist/pink, Other (Jaundice in face. ) Respiratory: Clear to auscultation, Normal air movement Cardiovascular: Regular rate, Normal S1, Normal S2, No murmurs Abdominal: Normal bowel sounds, Soft, No masses, Other (Soft, depressible, Tendernes in uper right quadrant and epigastric area, cannot palpate the liver edge. ) Extremities: No clubbing, No cyanosis, No edema, Normal pulses, No tenderness/swelling Skin: No rashes, No breakdown, No significant lesion Neuro: Normal gait, Normal speech, Strength at 5/5 X4 ext, Normal tone, Sensation intact Psych/Mental Status: Mental status NL, Mood NL laboratory and microbiology Laboratory Tests 12/17/24 07:43 12/17/24 06:26 Test 12/17/24 06:26 Range/Units Serum Glucose 98 74-106 mg/dL Labs and/or images reviewed: Labs reviewed by me, Image(s) reviewed by me Problem List/Assessment/Plan Problem List/Assessment/Plan # Severe anemia d/t upper GI bleeding - Hgb: 4.4 > 6.5 - Blood transfusion - Iron Sucrose 110 ml - Sucralfate 1 gm - GI consult; underwent EGD today. 1. 3 cm sliding-type hiatal hernia with severe grade C erosive esophagitis with esophageal ulcers extending into the distal 10 cm of the esophagus from which biopsies were obtained. M aelyslc-ki-hwyhjz duodenitis with multiple duodenal erosions and a larger postbulbar duodenal ulcer Cornelio classification C with no visible vessel or active bleeding. Sean's erosions at the diaphragmatic impingement Otherwise normal examination up to the 3rd part of the duodenum with no fresh or old blood in the upper GI tract # Intractable abdominal pain likely d/t PUD - Upper Endoscopy: 3 cm sliding-type hiatal hernia with severe grade C erosive esophagitis with esophageal ulcers extending into the distal 10 cm of the esophagus from which biopsies were obtained. Prycihnh-uz-nntfjc duodenitis with multiple duodenal erosions and a larger postbulbar duodenal ulcer Cornelio classification C with no visible vessel or active bleeding. Sean's erosions at the diaphragmatic impingement Otherwise normal examination up to the 3rd part of the duodenum with no fresh or old blood in the upper GI tract - Biopsy result pending # Acute chest pain r/o ACS - EKG: Sinus rhythm - Troponin 54 - BNP - Chest X-Ray: No acute cardiopulmonary disease. # History of GERD # History of PUD # r/o cirrhosis - PT 12.8 H. INR 1.23 H - Liver Ultrasound: No ascites is seen. - Octreotide 100ml - Pantoprazole 40 mg - Protonix 40 mg - Zofran 4 mg # DM2 -HbA1C # Alcohol dependence -CIWA score: 14 NPO diet PUD prophylaxis: protonix 40mg Goals of care: Full code, discussed for >16 minutes on 12/17/24 Plan discussed with patient Plan discussed with Dr. Orellana Plan discussed with: Patient, Other (RN) My Orders My Orders Orders - DIMAS INIGUEZ Procedure Category Date Status Time Complete Blood Count LAB 12/18/24 Verified 04:00 Basic Metabolic Panel LAB 12/18/24 Verified 04:00 CC Plasma Assessment Blood Product Administration S: 0950 Date of Service: Dec 17, 2024 Billing Provider: MARCIE ORELLANA MD Common Visit Codes: [id number] INP/OBS CARE(HIGH) Secondary Visit Codes: [id number] CARE PLAN 30 MINUTES DIMAS INIGUEZ Dec 17, 2024 16:12 PEG LEON Dec 17, 2024 19:36 MARCIE ORELLANA MD Dec 22, 2024 20:21
[2024-12-17] MEDS: LIDOCAINE VISCOUS 2% 15ML UD ONE (16:14)
[2024-12-17] MEDS: MIDAZOLAM HCL 5 MG/ML-1ML VIAL ONE (16:15)
[2024-12-17] MEDS: fentaNYL CITRATE 100 MCG/2 ML VL ONE (16:15)
--- NOTE | 2024-12-17 16:48 | DVHOP2 ---
Operative Report DATE OF OPERATION: 12/17/24 PROCEDURE: Upper Endoscopy with biopsy PREOPERATIVE INDICATION: The patient is a 49 -year-old male undergoing endoscopy for severe anemia, nausea vomiting and epigastric pain POSTOPERATIVE DIAGNOSES: 1. 3 cm sliding-type hiatal hernia with severe grade C erosive esophagitis with esophageal ulcers extending into the distal 10 cm of the esophagus from which biopsies were obtained 2. Oxomvfgw-sj-tlpiml duodenitis with multiple duodenal erosions and a larger postbulbar duodenal ulcer Cornelio classification C with no visible vessel or active bleeding 3. Sean's erosions at the diaphragmatic impingement Otherwise normal examination up to the 3rd part of the duodenum with no fresh or old blood in the upper GI tract PROCEDURE PERFORMED BY: Gaurav Jacobo GI NURSE: Prerna SCOPE: Olympus videoendoscope. ASA CLASS: 2. PREOPERATIVE MEDICATIONS: Versed 3 mg, Fentanyl 75 mcg, Benadryl 50 mg I administered moderate sedation throughout this _8_ minutes procedure. An independent trained observer pushed medications at my direction, and monitored the patient's level of consciousness and physiological status throughout. PROCEDURE IN DETAIL: After obtaining an informed consent, the patient was placed on left lateral decubitus position. The patient was then sedated with the above medications. A bite block was placed between his teeth. The endoscope was then passed through the oropharynx, into the esophagus, and through the stomach and pylorus up to the second and third part of the duodenum. The endoscope was then withdrawn. The 2nd and 3rd part of the duodenum were normal. The duodenal bulb and postbulbar area showed ufjznpwf-rl-[id number] duodenitis There was a large postbulbar duodenal ulcer Cornelio classification C with no visible vessel with surrounding duodenitis another smaller ulcer Pre-pyloric area and antrum showed mild gastritis. On retroflexion the fundus cardia and angularis were normal. Duodenal and gastric biopsies were obtained. The endoscope was then withdrawn into distal esophagus . Patient also had Sean's linear erosions of the diaphragmatic impingement Patient had a 3 cm sliding-type hiatal hernia with grade C erosive esophagitis and distal esophageal ulcers from which biopsies were obtained The proximal esophagus and oropharynx were unremarkable. There was no fresh or old blood in the UGI tract The patient tolerated the procedure well without difficulty. COMPLICATIONS : None SPECIMENS: Duodenal biopsies Gastric biopsies Esophageal biopsies DISPOSITION: Transfer to floor Stable PLAN: 1. Await for biopsy result 2. Will place pt on Protonix 40 mg bid IV 3. Carafate suspension 1 g p.o. 4 times a day 4. DC aspirin NSAIDs smoking alcohol 5. Patient will need to be maintained on long-term PPI 6. Patient was advised to follow up in my office as an outpatient for elective screening colonoscopy 7. Advance diet as tolerated and monitor labs GAURAV JACOBO MD Dec 17, 2024 16:48
[2024-12-17] MEDS: SUCRALFATE 1 GM/10 ML ORAL SUSP PO SCH (21:21)
[2024-12-17 21:24] LABS: Hematocrit 27.1 % (41.0-53.0); Hemoglobin 8.3 g/dL (13.5-17.5); Mean Corpuscular Hemoglobin 22.5 pg (28.0-32.0); Mean Corpuscular Volume 73.2 fL (80.0-100.0); Nucleated Red Blood Cells % 0.5 %
[2024-12-18] VITALS (8 sets, daily range): BP systolic 117–149; BP diastolic 76–93; PULSE 54–84; RESP 16–20; TEMP 97.9–98.5; O2SAT 93–99
[2024-12-18 00:55] LABS: Hematocrit 25.0 % (41.0-53.0); Hemoglobin 7.8 g/dL (13.5-17.5)
[2024-12-18 07:19] LABS: Hemoglobin 8.9 g/dL (13.5-17.5); Mean Corpuscular Hemoglobin 23.5 pg (28.0-32.0); Nucleated Red Blood Cells % 0.6 %
[2024-12-18 07:22] LABS: Hematocrit 27.6 % (41.0-53.0); Mean Corpuscular Volume 73.0 fL (80.0-100.0)
[2024-12-18 07:25] LABS: Chloride 103 mmol/L (98-107); Potassium 3.8 mmol/L (3.5-5.1); Sodium 137 mmol/L (136-145)
[2024-12-18 07:26] LABS: Anion Gap 8 (5-15); Calcium 9.0 mg/dL (8.7-10.4); Carbon Dioxide 26 mmol/L (20-31)
[2024-12-18 07:31] LABS: BUN/Creatinine Ratio 9.5 (10.0-20.0); Glucose 96 mg/dL (74-106)
[2024-12-18 07:33] LABS: Blood Urea Nitrogen 7 mg/dL (9-23)
[2024-12-18] MEDS: MAGNESIUM SULFATE 1GM/100ML 100 ML IV ONE (09:18)
--- NOTE | 2024-12-18 14:49 | DVHPNRES ---
Progress Note Date Seen: Dec 18, 2024 Resident Creating Document: DIMAS INIGUEZ Medical Necessity Reason Pt with a Central, PICC or Fol: No Subjective Review of Systems This is a 49-year-old male with a history of DM2, GERD, peptic ulcer disease, iron-deficiency anemia, and cirrhosis. He presents to the ED with 3 days of stabbing, retrosternal chest pain (rated 10/7), intermittent and progressive, radiating to the back, associated with lightheadedness, dizziness, shortness of breath, nausea, and vomiting. He reports PO intolerance and vomiting with every meal for the past 3 days. Today, he developed epigastric pain (9/10), burning in nature, radiating to the chest, prompting his ED visit. He denies hematemesis, hematochezia, melena, hematuria, fever, chills, or bowel habit changes. He has a history of GI bleeding requiring transfusion 4 years ago and underwent EGD at that time (results shows GI ulcer). Initial hemoglobin level was 4.4. Patient seen at bedside. Patient reports feeling less fatigued after recent blood transfusion. Patient denied dizziness or shortness on breath at present. Patient state that endoscopic was performed, and 3 cm sliding-type hiatal hernia with severe grade C erosive esophagitis with esophageal ulcers, duodenal ulcer was identified. No active gastrointestinal bleeding symptoms therefore that this time. Continue full liquid diet. Objective vital signs Vital Sign Date Time Temp Pulse Resp B/P (MAP) Pulse Ox O2 Delivery O2 Flow Rate FiO2 12/18/24 09:00 98.1 65 20 126/84 (98) 98 98.1 12/18/24 08:00 Room Air* 0 21 Total Intake and Output 12/17/24 12/17/24 12/18/24 15:00 23:00 07:00 Intake Total 1620 ml 350 ml Output Total 0 ml Balance 1620 ml 350 ml medications Current Medications Medications Dose Ordered Sig/Annette Route Start Time Stop Time Status Last Admin Dose Admin Pantoprazole Sodium 40 mg BID IV 12/17/24 01:00 12/18/24 09:14 40 MG Ondansetron HCl 4 mg Q4HP PRN IV 12/17/24 01:30 Acetaminophen/ Hydrocodone Bitart 1 tab Q4HP PRN PO 12/17/24 05:45 12/18/24 06:40 1 TAB Potassium Chloride 100 ml @ 50 mls/hr Q2H IV 12/17/24 09:15 12/17/24 13:14 UNV Iron Sucrose 110 ml @ 110 mls/hr DAILY@1200 IV 12/17/24 12:00 12/21/24 12:59 12/18/24 11:06 110 MLS/HR Sucralfate 1 gm QID@0600,1130,1700,2200 PO 12/17/24 17:00 12/18/24 11:05 1 GM laboratory and microbiology Laboratory Tests 12/18/24 06:26 Test 12/18/24 06:26 Range/Units Serum Glucose 96 74-106 mg/dL Labs and/or images reviewed: Labs reviewed by me, Image(s) reviewed by me Problem List/Assessment/Plan Problem List/Assessment/Plan # Severe anemia d/t GI bleeding # r/o active GI bleeding - Hgb: 4.4 > 6.5 >8.3 > 7.8 > 8.9 - Blood transfusion - Iron Sucrose 110 ml - Sucralfate 1 gm - GI consult # Intractable abdominal pain likely d/t PUD - Upper Endoscopy: 3 cm sliding-type hiatal hernia with severe grade C erosive esophagitis with esophageal ulcers extending into the distal 10 cm of the esophagus from which biopsies were obtained. Huhcelhv-mw-[id number] duodenitis with multiple duodenal erosions and a larger postbulbar duodenal ulcer Cornelio classification C with no visible vessel or active bleeding. Sean's erosions at the diaphragmatic impingement Otherwise normal examination up to the 3rd part of the duodenum with no fresh or old blood in the upper GI tract - Biopsy result pending # Acute chest pain r/o ACS - EKG: Sinus rhythm - Troponin 54 - BNP - Chest X-Ray: No acute cardiopulmonary disease. # History of GERD # History of PUD # r/o cirrhosis - PT 12.8 H. INR 1.23 H - Liver Ultrasound: No ascites is seen. - Octreotide 100ml - Pantoprazole 40 mg - Protonix 40 mg - Zofran 4 mg # DM2 -HbA1C Full liquid diet PUD prophylaxis: protonix 40mg Goals of care: Full code, discussed for >16 minutes on 12/18/24 Plan discussed with patient Plan discussed with Dr. Orellana Plan discussed with: Patient, Other (RN) CC Plasma Assessment Blood Product Administration S: 0950 Date of Service: Dec 18, 2024 Billing Provider: MARCIE ORELLANA MD Common Visit Codes: [id number] INP/OBS CARE(HIGH) GEETHAABHINAVKODAK RESIDENT Dec 18, 2024 14:49 MARCIE ORELLANA MD Dec 22, 2024 20:22
--- NOTE | 2024-12-18 21:19 | DVHPN2 ---
Progress Note - Dictate Date Seen: Dec 18, 2024 (Late entryTime of visit for p.m.) Medical Necessity Reason Pt with a Central, PICC or Fol: No Subjective No new complaints Sitting out of bed to chair Tolerating full liquid diet and would like to eat soft diet vital signs Vital Sign Date Time Temp Pulse Resp B/P (MAP) Pulse Ox O2 Delivery O2 Flow Rate FiO2 12/18/24 17:00 98.4 56 20 149/87 (107) 99 98.4 12/18/24 08:00 Room Air* 0 21 Total Intake and Output 12/17/24 12/17/24 12/18/24 15:00 23:00 07:00 Intake Total 1620 ml 350 ml Output Total 0 ml Balance 1620 ml 350 ml medications Current Medications Medications Dose Ordered Sig/Annette Route Start Time Stop Time Status Last Admin Dose Admin Pantoprazole Sodium 40 mg BID IV 12/17/24 01:00 12/18/24 09:14 40 MG Ondansetron HCl 4 mg Q4HP PRN IV 12/17/24 01:30 Acetaminophen/ Hydrocodone Bitart 1 tab Q4HP PRN PO 12/17/24 05:45 12/18/24 16:52 1 TAB Potassium Chloride 100 ml @ 50 mls/hr Q2H IV 12/17/24 09:15 12/17/24 13:14 UNV Iron Sucrose 110 ml @ 110 mls/hr DAILY@1200 IV 12/17/24 12:00 12/21/24 12:59 12/18/24 11:06 110 MLS/HR Sucralfate 1 gm QID@0600,1130,1700,2200 PO 12/17/24 17:00 12/18/24 16:33 1 GM objective General: NAD, AAOX3 Chest: lung wade clear to auscultation Heart: RRR, no murmur Abdomen: non-distended, mild epigastric tenderness to palpation, +BS laboratory and microbiology Laboratory Tests 12/18/24 06:26 Test 12/18/24 06:26 Range/Units Serum Glucose 96 74-106 mg/dL Problems(with codes): (1) Severe anemia (2) Hyponatremia (3) Hypokalemia (4) Hiatal hernia with gastroesophageal reflux disease and esophagitis Prognosis PLAN Protonix 40 mg p.o. twice a day Carafate 1 g p.o. twice a day DC aspirin NSAIDs smoking alcohol Advance to soft diet Discharge planning is in progress Outpatient follow up with me in 4-6 weeks to review results and consider elective screening colonoscopy Plan discussed with: Patient, Other (Nurse) CC Plasma Assessment Blood Product Administration S: [id number] GAURAV ZAMBRANO MD Dec 18, 2024 21:19
[2024-12-19 01:00] VITALS: BP 148/84; PULSE 60; RESP 18; TEMP 98; O2SAT 99
[2024-12-19 05:00] VITALS: BP 153/85; PULSE 61; RESP 18; TEMP 98.2; O2SAT 99
[2024-12-19 07:24] LABS: Chloride 104 mmol/L (98-107); Potassium 3.8 mmol/L (3.5-5.1); Sodium 138 mmol/L (136-145)
[2024-12-19 07:25] LABS: Anion Gap 8 (5-15); Calcium 8.8 mg/dL (8.7-10.4); Carbon Dioxide 26 mmol/L (20-31)
[2024-12-19 07:30] LABS: BUN/Creatinine Ratio 11.1 (10.0-20.0); Glucose 83 mg/dL (74-106); Hematocrit 27.3 % (41.0-53.0); Hemoglobin 8.6 g/dL (13.5-17.5); Nucleated Red Blood Cells % 0.2 %
[2024-12-19 07:31] LABS: Blood Urea Nitrogen 8 mg/dL (9-23)
[2024-12-19 07:34] LABS: Mean Corpuscular Hemoglobin 23.2 pg (28.0-32.0); Mean Corpuscular Volume 73.6 fL (80.0-100.0)
[2024-12-19 08:00] VITALS: PULSE 74; PULSE 88; RESP 18; O2SAT 97
[2024-12-19] MEDS ORDERED: FER325T PO (08:33)
[2024-12-19] MEDS ORDERED: PANT40T PO (08:33)
[2024-12-19] MEDS ORDERED: SUCR1SUS26 PO (08:33)
[2024-12-19] MEDS: PANTOPRAZOLE 40 MG TAB PO SCH (08:48)
[2024-12-19 09:00] VITALS: BP 142/92; PULSE 88; RESP 20; TEMP 97.5; O2SAT 97
[2024-12-19 10:24] VITALS: BP 142/92; PULSE 88; RESP 16; TEMP 97.5; O2SAT 97
[2024-12-19 11:06] LABS: Anisocytosis Marked
--- NOTE | 2024-12-19 15:33 | DVHDSRES ---
Discharge Summary Date of Admission Resident Creating Document: DIMAS INIGUEZ RESIDENT Dec 17, 2024 at 01:21 Date of Discharge: Dec 19, 2024 Admitting Diagnosis chest pain Labs/Diagnostic Data: Laboratory Results Test 12/19/24 06:10 12/17/24 07:43 12/17/24 06:26 12/17/24 00:56 White Blood Count 7.2 10^3/uL (4.4-10.8) Red Blood Count 3.70 10^6/uL (4.5-5.90) Hemoglobin 8.6 g/dL (13.5-17.5) Hematocrit 27.3 % (41.0-53.0) Mean Corpuscular Volume 73.6 fL (80.0-100.0) Mean Corpuscular Hemoglobin 23.2 pg (28.0-32.0) Mean Corpuscular Hemoglobin Concent 31.6 g/dL (32.0-36.0) Red Cell Distribution Width 29.7 % (11.8-14.3) Platelet Count 344 10^3/uL (140-450) Mean Platelet Volume 7.0 fL (6.9-10.8) Neutrophils (%) (Auto) 48.4 % (37.0-80.0) Lymphocytes (%) (Auto) 28.6 % (10.0-50.0) Monocytes (%) (Auto) 15.4 % (0.0-12.0) Eosinophils (%) (Auto) 6.6 % (0.0-7.0) Basophils (%) (Auto) 1.0 % (0.0-2.0) Neutrophils # (Auto) 3.5 10 ^3/uL (1.6-8.6) Lymphocytes # (Auto) 2.1 10 ^3/uL (0.4-5.4) Monocytes # (Auto) 1.1 10 ^3/uL (0-1.3) Eosinophils # (Auto) 0.5 10 ^3/uL (0-0.8) Basophils # (Auto) 0.1 10 ^3/uL (0-0.2) Nucleated Red Blood Cells 0.2 % Platelet Estimate Adequate Hypochromasia (manual) Moderate Anisocytosis (manual) Marked Microcytosis Moderate Sodium Level 138 mmol/L (136-145) Potassium Level 3.8 mmol/L (3.5-5.1) Chloride Level 104 mmol/L (98-107) Carbon Dioxide Level 26 mmol/L (20-31) Anion Gap 8 (5-15) Blood Urea Nitrogen 8 mg/dL (9-23) Creatinine 0.72 mg/dL (0.700-1.30) Glomerular Filtration Rate Calc 113 mL/min (>90) BUN/Creatinine Ratio 11.1 (10.0-20.0) Serum Glucose 83 mg/dL (74-106) Calcium Level 8.8 mg/dL (8.7-10.4) Hemoglobin A1c 5.0 % A1C (<5.7) Plasma/Serum Blood Alcohol 3.4 mg/dL (<10) Magnesium Level 1.5 mg/dL (1.6-2.6) Total Bilirubin 1.1 mg/dL (0.2-1.0) Aspartate Amino Transferase (AST) 39 U/L (13-40) Alanine Aminotransferase (ALT) 23 U/L (7-40) Alkaline Phosphatase 56 U/L (46-116) Total Protein 6.7 g/dL (5.7-8.2) Albumin 3.7 g/dL (3.2-4.8) Stool Occult Blood Negative (Negative) Stool Occult Blood Sample #3 (Negative) Test 12/17/24 00:23 12/16/24 21:45 12/16/24 21:32 Troponin I High Sensitivity 54 ng/L (</=54) Lipase 28 U/L (12-53) Blood Gas Specimen Type Arterial Blood Gas Sample Site Left radial Blood Gas Patient Temperature 37.0 Arterial Blood Date Drawn [id number] Arterial Blood pH 7.507 (7.350-7.450) Arterial Blood Partial Pressure CO2 28.2 mmHg (35.0-48.0) Arterial Blood Partial Pressure O2 94.7 mmHg (83.0-108.0) Arterial Blood HCO3 21.8 mmol/L (21.0-28.0) Arterial Blood Oxygen Saturation 97.2 % (94.0-98.0) Arterial Blood Base Excess -1.3 mmol/L (-2.0-3.0) Arterial Blood Oxyhemoglobin 94.4 % (94.0-98.0) Arterial Blood Carboxyhemoglobin 1.7 % (0.5-1.5) Arterial Blood Methemoglobin 1.2 % (0.0-1.5) Albert Test Yes Blood Gas Total Hemoglobin 5.00 g/dL (13.5-17.5) Blood Gas Modality Room air FiO2 % 21.0 Blood Gas Critical Value Read Back Yes Blood Gas Notified Whom mike Joyner Blood Gas Notified Time [id number] Blood Gas Notified By Medical Review Specialist nevaeh pedro Prothrombin Time 12.8 sec (9.3-11.8) Prothrombin Time INR 1.23 (0.9-1.15) Activated Partial Thromboplast Time 25.1 SEC (24.5-34.5) Iron Level 11 ug/dL (65-175) Total Iron Binding Capacity 472 ug/dL (250-425) Percent Iron Saturation 2.3 % (20-55) Ferritin 4.8 ng/mL (22-322) Beta-Hydroxybutyric Acid 1.218 mmol/L (< 0.4) Other Laboratory Tests 12/19/24 06:10 Brief Hx & Hospital Course: The patient is a 49-year-old male with a history of type 2 diabetes mellitus, GERD, peptic ulcer disease, iron-deficiency anemia who presented to the emergency department with three days of progressive, stabbing retrosternal chest pain radiating to the back, accompanied by lightheadedness, dizziness, shortness of breath, nausea, and vomiting. He reported intolerance to oral intake and vomiting with every meal. On the day of admission, he developed severe epigastric pain prompting his ED visit. He denied hematemesis, melena, or changes in bowel habits. Initial labs revealed a critically low hemoglobin of 4.4, consistent with severe anemia likely secondary to upper GI bleeding. He received blood transfusions and iron supplementation. An EGD was performed, revealing a 3 cm sliding-type hiatal hernia, severe grade C erosive esophagitis with esophageal ulcers, akzswnux-[id number] duodenitis, and a postbulbar duodenal ulcer (Cornelio classification C) without active bleeding. No fresh or old blood was noted in the upper GI tract. Cardiac workup included an EKG showing sinus rhythm and a troponin level of 54. Chest X-ray showed no acute cardiopulmonary disease. ACS was ruled out. The patient was managed medically with sucralfate, pantoprazole, octreotide, and antiemetics. He was placed on a full liquid diet and reported symptomatic improvement following transfusion. Liver ultrasound showed no ascites. The patient remained hemodynamically stable and alert throughout hospitalization. Discharge planning included continuation of GI medications, dietary modifications, and outpatient follow-up for biopsy results and alcohol cessation support. Operations or Procedures PROCEDURE(s): ABDL - ABDOMEN LIMITED REASON: ascitis ORDER NUMBER(s): [id number], ACCESSION NUMBER(s): [id number] US ABDOMEN LIMITED HISTORY: ascitis COMPARISON: US LIVER on DOS: 12/17/24 TECHNIQUE: Transverse and longitudinal sonographic images were obtained of all four quadrants of the abdomen and pelvis. FINDINGS: IMPRESSION: No ascites is seen. PROCEDURE(s): LIVUS - LIVER REASON: r/o cirrhosis ORDER NUMBER(s): [id number], ACCESSION NUMBER(s): [id number] STUDY: US LIVER TECHNIQUE: RUQ ultrasound was obtained using standard technique with Doppler. INDICATIONS: r/o cirrhosis FINDINGS: PANCREAS: Normal in size and echogenicity. Tail of pancreas is not well seen. LIVER: Normal size and echotexture. No mass. GALLBLADDER: No gallstones. Negative levine sign. no gallbladder wall thickening or pericholecystic fluid. COMMON BILE DUCT: Normal in caliber. RIGHT KIDNEY: Normal in size and echogenicity. No mass. No urinary stones. No hydronephrosis. IMPRESSION: 1. Difficult exam due to body habitus. 2. No acute cholecystitis. - PROCEDURE(s): CXR1 - CHEST XRAY 1 VIEW REASON: Chest pain ORDER NUMBER(s): [id number], ACCESSION NUMBER(s): [id number] CHEST RADIOGRAPH Indication: Chest pain Technique: Single frontal view of the chest was obtained Comparison: None FINDINGS: Lines and Tubes: None Lungs: No focal consolidation. Pleura: No effusion. No pneumothorax. Cardiomediastinal contours: Unremarkable Bones: No acute osseous abnormality. IMPRESSION: 1. No acute cardiopulmonary disease. - DATE OF OPERATION: 12/17/24 PROCEDURE: Upper Endoscopy with biopsy PREOPERATIVE INDICATION: The patient is a 49 -year-old male undergoing endoscopy for severe anemia, nausea vomiting and epigastric pain POSTOPERATIVE DIAGNOSES: 1. 3 cm sliding-type hiatal hernia with severe grade C erosive esophagitis with esophageal ulcers extending into the distal 10 cm of the esophagus from which biopsies were obtained 2. Ejyeponb-op-uvotoz duodenitis with multiple duodenal erosions and a larger postbulbar duodenal ulcer Cornelio classification C with no visible vessel or active bleeding 3. Sean's erosions at the diaphragmatic impingement Otherwise normal examination up to the 3rd part of the duodenum with no fresh or old blood in the upper GI tract PROCEDURE PERFORMED BY: Gaurav Zambrano GI NURSE: Prerna SCOPE: Olympus videoendoscope. ASA CLASS: 2. PREOPERATIVE MEDICATIONS: Versed 3 mg, Fentanyl 75 mcg, Benadryl 50 mg I administered moderate sedation throughout this _8_ minutes procedure. An independent trained observer pushed medications at my direction, and monitored the patient's level of consciousness and physiological status throughout. PROCEDURE IN DETAIL: After obtaining an informed consent, the patient was placed on left lateral decubitus position. The patient was then sedated with the above medications. A bite block was placed between his teeth. The endoscope was then passed through the oropharynx, into the esophagus, and through the stomach and pylorus up to the second and third part of the duodenum. The endoscope was then withdrawn. The 2nd and 3rd part of the duodenum were normal. The duodenal bulb and postbulbar area showed hnnmkonh-[id number]-fiaxxk duodenitis There was a large postbulbar duodenal ulcer Cornelio classification C with no visible vessel with surrounding duodenitis another smaller ulcer Pre-pyloric area and antrum showed mild gastritis. On retroflexion the fundus cardia and angularis were normal. Duodenal and gastric biopsies were obtained. The endoscope was then withdrawn into distal esophagus . Patient also had Sean's linear erosions of the diaphragmatic impingement Patient had a 3 cm sliding-type hiatal hernia with grade C erosive esophagitis and distal esophageal ulcers from which biopsies were obtained The proximal esophagus and oropharynx were unremarkable. There was no fresh or old blood in the UGI tract The patient tolerated the procedure well without difficulty. COMPLICATIONS : None SPECIMENS: Duodenal biopsies Gastric biopsies Esophageal biopsies DISPOSITION: Transfer to floor Stable PLAN: 1. Await for biopsy result 2. Will place pt on Protonix 40 mg bid IV 3. Carafate suspension 1 g p.o. 4 times a day 4. DC aspirin NSAIDs smoking alcohol 5. Patient will need to be maintained on long-term PPI 6. Patient was advised to follow up in my office as an outpatient for elective screening colonoscopy 7. Advance diet as tolerated and monitor labs GAURAV ZAMBRANO MD Dec 17, 2024 16:48 DICTATED BY:GAURAV ZAMBRANO MD DICTATED DATE/TIME:12/17/241647 ELECTRONICALLY SIGNED BY:GAURAV ZAMBRANO MD 12/17/241647 Condition at Discharge: Stable (RN) Final Diagnosis/Problems List # Severe anemia d/t upper GI bleeding # Intractable abdominal pain likely d/t PUD # Acute chest pain r/o ACS # History of GERD # History of PUD # DM2 Discharge Disposition: Home Discharge Instruct/Medications Diet: See Comment Diet comment: continue soft diet, advance as tolerated Activity: No Restrictions, As Tolerated Follow Up/Referral: Follow up in the discharge clinic Follow up with GI at your earliest convenience for outpatient colonoscopy Medications: Pantoprazole 40 mg b.i.d. Sucralfate 1 g q.i.d. Ferrous sulfate 325 mg Scheduled Ferrous Sulfate (Ferrous Sulfate), 1 TAB PO DAILY Pantoprazole Sodium Sesquihydr (Pantoprazole Sodium), 40 MG PO BID@0700,1700 Sucralfate (Carafate Susp), 1 GM PO QID@0600,1130,1700,2200 Discharge Statement: "Patient was advised to return to the ER or call 911 if any headaches, dizziness, shortness of breath, chest pain, abdominal pain, bleeding, fevers, or worsening of medical condition. Patient was counseled about treatment plan, medications, possible side effects, patientverbalized understanding. All questions were answered to the best of my ability. This discharge took greater then 30 minutes in planning, reviewing documentation, counseling the patient, and discussing with other team members." ASSESSMENT ASSESSMENT Assessment # Severe anemia d/t upper GI bleeding # Intractable abdominal pain likely d/t PUD # Acute chest pain r/o ACS # History of GERD # History of PUD # DM2 Date of Service: Dec 19, 2024 Billing Provider: MARCIE TEJEDA MD Common Visit Codes: 87246-RMF/OBS DISCH DAY >30min DIMAS INIGUEZ RESIDENT Dec 19, 2024 15:33 MARCIE TEJEDA MD Dec 22, 2024 20:22
--- NOTE | 2024-12-19 16:43 | DVHPN2 ---
Progress Note - Dictate Date Seen: Dec 19, 2024 (Time of visit 10:00 a.m.) Medical Necessity Reason Pt with a Central, PICC or Fol: No Subjective No new complaints No active GI bleeding Tolerating soft diet Hemoglobin stable at 8.6 vital signs Vital Sign Date Time Temp Pulse Resp B/P (MAP) Pulse Ox O2 Delivery O2 Flow Rate FiO2 12/19/24 10:24 97.5 88 16 97 12/19/24 09:00 142/92 (109) 12/19/24 08:00 Room Air* 0 21 Total Intake and Output 12/18/24 12/18/24 12/19/24 15:00 23:00 07:00 Intake Total 320 ml 700 ml 1200 ml Balance 320 ml 700 ml 1200 ml medications Current Medications Medications Dose Ordered Sig/Annette Route Start Time Stop Time Status Last Admin Dose Admin Potassium Chloride 100 ml @ 50 mls/hr Q2H IV 12/17/24 09:15 12/17/24 13:14 UNV objective General: NAD, AAOX3 Chest: lung wade clear to auscultation Heart: RRR, no murmur Abdomen: non-distended, mild epigastric tenderness to palpation, +BS laboratory and microbiology Laboratory Tests 12/19/24 06:10 Test 12/19/24 06:10 Range/Units Serum Glucose 83 74-106 mg/dL Problems(with codes): (1) Hiatal hernia with gastroesophageal reflux disease and esophagitis (2) Severe anemia (3) Hyponatremia (4) Hypokalemia Prognosis Plan Advance diet as tolerated Discharge planning is in progress Maintained on Protonix and Carafate Outpatient follow up with me to discuss elective screening colonoscopy Once again thank you for allowing me to participate in the care of this patient Plan discussed with: Patient CC Plasma Assessment Blood Product Administration S: [id number] GAURAV ZAMBRANO MD Dec 19, 2024 16:43
== END 2024-12-19 11:19 | disposition home or self-care (01) | DRG 242 ==
LOC: ER 21:10 → OVERFLOW 12-17 01:21 → TELE-WESTW 12-17 20:44
PROVIDERS: ADMIT Internal Medicine Geriatric Medicine; ATTEND Internal Medicine Geriatric Medicine
PROC: 0DB98ZX Excision of Duodenum, Via Natural or Artificial Opening Endoscopic, Diagnostic (ICD-10-PCS; 2024-12-17)
PROC: 0DB68ZX Excision of Stomach, Via Natural or Artificial Opening Endoscopic, Diagnostic (ICD-10-PCS; 2024-12-17)
PROC: 0DB38ZX Excision of Lower Esophagus, Via Natural or Artificial Opening Endoscopic, Diagnostic (ICD-10-PCS; 2024-12-17)
PROC: 30233N1 Transfusion of Nonautologous Red Blood Cells into Peripheral Vein, Percutaneous Approach (ICD-10-PCS; principal; 2024-12-17 16:10)
DX: K22.11 Ulcer of esophagus with bleeding (principal); E87.3 Alkalosis; K27.4 Chronic or unspecified peptic ulcer, site unspecified, with hemorrhage; E87.1 Hypo-osmolality and hyponatremia; I24.9 Acute ischemic heart disease, unspecified; D62 Acute posthemorrhagic anemia; E11.9 Type 2 diabetes mellitus without complications; K44.9 Diaphragmatic hernia without obstruction or gangrene; K21.9 Gastro-esophageal reflux disease without esophagitis; E87.6 Hypokalemia; F10.20 Alcohol dependence, uncomplicated; K29.81 Duodenitis with bleeding; Z87.11 Personal history of peptic ulcer disease; Z91.148 Patient's other noncompliance with medication regimen for other reason; Y90.9 Presence of alcohol in blood, level not specified
CPT/HCPCS: 36415; 36600; 43239; 71045; 76705; 80048; 80053; 80320; 82010; 82270; 82728; 82805; 83036; 83540; 83550; 83690; 83735; 84484; 85014; 85018; 85025; 85610; 85730; 86850; 86900; 86901; 86920; 93005; 96361; 96374; 96375; G0378; J1756; J2250; J2405; J2470